=== PATIENT | female | born 1940 | race Caucasian/White ===

== ENCOUNTER 2017-10-05 15:51 | Emergency (ER) | payer OTHER, MEDICARE ==
--- NOTE | 2017-10-05 16:32 | EDPHY ---
H & P Stated Complaint: PAIN IN L LEG STARTING AT FOOT AND INTO BACK Time Seen by Provider: 10/05/17 15:54 HPI/ROS: CHIEF COMPLAINT: Left leg and back pain HISTORY OF PRESENT ILLNESS: 77-year-old female with obesity presents with a one -week history of left leg and back pain. The pain is typical for her to describe, but waxes and wanes and is not affected by position change. The pain is sometimes in her back and other times in her lower leg. Difficulty sleeping secondary to pain. Ibuprofen with some relief. She has ongoing swelling of the left lower extremity and redness on the left anterior lower leg. She was sent to the emergency department to rule out DVT. No numbness or weakness. REVIEW OF SYSTEMS: complete 10 point ROS negative except at noted in the HPI - Personal History Current Tetanus/Diphtheria Vaccine: Unsure - Medical/Surgical History Hx Asthma: No Hx Chronic Respiratory Disease: No Hx Diabetes: Yes Hx Cardiac Disease: No Hx Renal Disease: No Hx Cirrhosis: No Hx Alcoholism: No Hx HIV/AIDS: No Hx Splenectomy or Spleen Trauma: No Other PMH: BOTH HIPS, BOTH KNEES, PARTIAL R SHOULDER REPLACED, HTN,DIABETIC, MACULAR DEGENERATION, - Social History Smoking Status: Former smoker - Physical Exam Exam: Alert and oriented, pleasant HEENT: normal inspection Chest: normal RR CV: RRR Abd: soft, NT Back: Left lower lumbar tenderness Extremities: Left lower extremity swelling and erythema on the anterior lower leg, no tenderness, negative straight leg raise Skin: Intact Neuro: Motor and sensory intact Vascular: Capillary refill brisk distally Constitutional: Initial Vital Signs Temperature (C) 36.9 C 10/05/17 15:53 Heart Rate 90 10/05/17 15:53 Respiratory Rate 16 10/05/17 15:53 Blood Pressure 150/63 H 10/05/17 15:53 O2 Sat (%) 89 L 10/05/17 15:53 O2 Delivery Mode Room Air Allergies/Adverse Reactions: MORPHINE Allergy (Uncoded 10/05/17 16:02) Home Medications: Medication Instructions Recorded Atorvastatin Calcium 10/05/17 Hydrocodone/APAP 5/325 [[place] 1 - 2 tab PO Q4H PRN #10 tab 10/05/17 5/325] Icaps Areds 10/05/17 Labetalol HCl 10/05/17 Metformin HCl 10/05/17 Preservision Softgel 10/05/17 Ropinirole 10/05/17 Valsartan-Hctz 80-12.5 mg Tab 10/05/17 Medical Decision Making - Diagnostics Imaging Results: Imaging Impressions Extremity Venous Study 10/05/17 16:13 Impression: No deep venous thrombosis in the left lower extremity. Findings discussed with Catrina Mcrae M.D. at 17:00 hour, 10/05/2017. ED Course/Re-evaluation: Left lower extremity ultrasound is negative for DVT, read by Dr. Lowell James. Results discussed with the patient. Sx c/w sciatica, will start ibuprofen tid , [place] #10 to help with sleep, f/u pcp. Differential Diagnosis: Differential diagnosis for back pain includes DVT, muscular pain, herniated disc , epidural abscess, discitis, spine fracture, intra-abdominal causes and urinary tract infection. Departure - Departure Disposition: Home, Routine, Self-Care Clinical Impression: Sciatica of left side Condition: Good Instructions: Sciatica (ED) Additional Instructions: Ibuprofen 600 mg 3 times daily while the pain persists. Referrals: Tino Kohler MD [Medical Doctor] - As per Instructions Prescriptions: Hydrocodone/APAP 5/325 [[place] 5/325] 1 - 2 tab PO Q4H PRN #10 tab PRN Reason: Pain, Moderate
[2017-10-05 17:30] VITALS: BP 147/70
== END 2017-10-05 17:30 | disposition home or self-care (01) ==
DX: M54.32 Sciatica, left side (principal); I10 Essential (primary) hypertension; E11.9 Type 2 diabetes mellitus without complications; Z79.84 Long term (current) use of oral hypoglycemic drugs; Z87.891 Personal history of nicotine dependence